=== PATIENT | female | born 1965 | race Caucasian/White ===

== ENCOUNTER 2016-11-28 14:29 | Emergency (ER) | payer OTHER ==
[~2016-11-28 14:29] MED LIST: IBUPROFEN400 MG PO; PERCOCET1 TA1 PO; VICODIN EQUIVAL1 TAB PO; VISTARIL25 MG PO
--- NOTE | 2016-11-28 14:57 | ED CLINICAL REPORT ---
Clinical Report - Physicians/Mid Levels [facility] [address] [place] [address] 11/28/2016 14:30 Patient: LUKE FORBES Arrived- By private vehicle. Historian- patient. HISTORY OF PRESENT ILLNESS Chief Complaint: DENTAL PAIN. This started last night and is still present. Pain described as severe. No sore throat or mouth sores. She has had toothache, swelling of the face, jaw pain and facial pain. (pt spoke w/ dentist today-advised to come to ER. Will see him Wednesday for extraction.). Similar symptoms previously: None. Recent medical care: Not recently seen/assessed. REVIEW OF SYSTEMS The patient has had fever, nausea and enlarged lymph nodes. No eye discomfort, difficulty breathing or vomiting. Denies current . PAST HISTORY See nurses notes. No history of heart disease, lung disease, hypertension or diabetes mellitus. Medications: 2 aleve at 0600. None. Allergies: None. SOCIAL HISTORY Light tobacco smoker (cigarette)- less than 1/2 a pack per day. Occasional alcohol use. History of drug use: marijuana. ADDITIONAL NOTES The nursing notes have been reviewed. PHYSICAL EXAM Vital Signs: 11/28/2016 14:35 BP: 130/78. HR: 104. RR: 22. O2 saturation: 100%. Temp: 98.8 F. Pain level now: 8/10. Have been reviewed and appear to be correct. Appearance: Alert. She appears in pain and is cooperative. She is alert, oriented, well hydrated, well nourished and well developed. She is well dressed, shows no apparent trauma and has normal color. Head: Mild swelling of the right maxilla. Normal external inspection. Eyes: Conjunctivae and eyelids normal. ENT: Dental decay. Severe dental tenderness with gingival tenderness and swelling (upper right molars). Ears normal. Nose normal. Pharynx normal. Lips normal. No trismus present. Uvula midline. Neck: Normal inspection. Mild right anterior neck and mild right posterior neck lymphadenopathy present. Trachea midline. Thyroid normal. Neck supple. No meningeal signs. CVS: Normal heart rate and rhythm. Heart sounds normal. Respiratory: No respiratory distress. Skin: Normal skin color. Normal skin turgor. Neuro: Oriented X 3. PROGRESS AND PROCEDURES Course of Care: No indication for labs ER physician Dr Terrell Pritchard available for backup PRN No evidence of sepsis or abscess requiring drainage IM rocephin 1g, dilaudid 2mg IM for pain. 15:17 11/28/16. Feeling better. Indications for return reviewed, as well as meds and rationale for home care. 15:25 11/28/16. 15:22 11/28/16. BP: 129/75. HR: 90. RR: 18. O2 saturation: 97%. Pain level now: 5/10. Patient is stable. Physical exam findings are improved. Symptoms much better. Patient and family counseled in person regarding the patient's condition, diagnosis and need for follow-up. Disposition: Discharged. Condition: stable. CLINICAL IMPRESSION Periapical dental abscess. No sinus tract. INSTRUCTIONS Drink plenty of fluids. (Return if symptoms worsen over next 24 hours. Take meds as directed. Only take percocet for bare minimum of time-may be addictive even used short term. do not mix w/ alcohol. Take stool softener w/ if prone to constipation.). Warnings: CONTROLLED SUBSTANCE WARNINGS: The reason for controlled substance is related to an acute illness. Reviewed the risks and benefits of the medication. Discussed warnings with the patient. GENERAL WARNINGS: Return or contact your physician immediately if your condition worsens or changes unexpectedly, if not improving as expected, or if other problems arise. Prescription Medications: Zofran (orally disintegrating tablets) 4 mg: take 1-2 orally every 8 hours as needed for nausea. Dispense five (5). No refill. Augmentin 875 mg: take 1 tablet orally every 12 hours for 10 days. No refill. Oxycodone/APAP 5 mg/325 mg: take 1-2 tablets orally every 6 hours as needed for pain. Dispense twelve (12). No refill. Dexamethasone 4 mg. No refill. (11/26/ taper (tabs per day, qty 6)) Follow-up: Follow up with a dentist Wednesday even if well. Summary of care provided to patient. Understanding of the discharge instructions verbalized by patient. (Electronically signed by Sherine Hoffmann A.R.NJasmineP. 11/28/2016 15:26)
--- NOTE | 2016-11-28 14:57 | ED ORDER SUMMARY ---
..... Patient: LUKE FORBES OrderSheet [facility] VisitID: [id number] [address] [place] [address] 50y, F Registration Date/Time: 11/28/2016 ORDER SHEET Weight: 56.6 kg (stated) Allergies: None GENERAL ORDERS: MEDICATION ORDERS: Rocephin IM 1 gm (NOW) (14:48 11/28/2016 SThom A.R.N.P.) (15:04 LSullivan R.N.) Dilaudid IM 2 mg (NOW) (14:48 11/28/2016 SThom A.R.N.P.) (15:04 LSullivan R.N.) Ondansetron ODT PO 4 mg (NOW) (14:49 11/28/2016 SThom A.R.N.P.) (15:03 LSullivan R.N.) IV FLUIDS: ORDER SHEET NOTES: [Electronically signed by Sherine Hoffmann A.R.N.P. (15:11/28/2016)] [Electronically signed by Chandrika Hernandez R.N. (15:11/28/2016)] [Electronically locked/signed by Chandrika Hernandez R.N. (15:11/28/2016)]
--- NOTE | 2016-11-28 14:57 | ED NURSING NOTES ---
Clinical Report - Nurses [facility] [address] [place] [address] 11/28/2016 14:30 Patient: LUKE FORBES TRIAGE Triage time 1435. Acuity: LEVEL 5. Chief Complaint: SORE THROAT, RIGHT UPPER TOOTHACHE and JAW PAIN and SWELLING OF JAW / FACE. --14:41 Nicole Boucher R.N. 14:35 11/28/16. BP: 130/78. HR: 104. RR: 22. O2 saturation: 100%. Temp: 98.8 F. Pain level now: 05/06. --14:41 Nicole Boucher R.N. Weight: 56.6 kg stated. Height/Length: 63 inches Per Patient. BMI: 22.1. --14:39 Nicole Boucher R.N. Medications None. --14:40 Nicole Boucher R.N. 2 aleve at 0600. --14:40 Nicole Boucher R.N. Allergies None. --14:40 Nicole Boucher R.N. History Arrived by private vehicle. Historian: patient. Accompanied by friend. Primary physician (DDS= ed in [facility]). No primary care physician. This started last night. SOCIAL HX: Light tobacco smoker (cigarette)- less than 1/2 a pack per day. Occasional alcohol use. History of drug use: marijuana. --14:41 Nicole Boucher R.N. PROBLEMS: Back Pain. Vaginal Bleeding. Ectopic . --14:38 Nicole Boucher R.N. ADDITIONAL SURGERIES: Laparoscopy. Shoulder Surgery. Tubal Ligation. --14:38 Nicole Boucher R.N. Interventions ID band on patient. To treatment room. --14:41 Nicole Boucher R.N. PHYSICAL ASSESSMENT 14:35. Ambulatory to room. GENERAL / NEURO / PSYCH: Alert. Oriented X 4. Appears in pain. HEENT: Facial swelling present. Voice within normal limits. ( pt states it hurts to swallow "due to the infection and swelling"). Dental tenderness. Dental decay. RESPIRATORY: Respirations not labored. CVS: Capillary refill less than 2 seconds. SKIN: Skin is warm and dry. --14:44 Nicole Boucher R.N. NURSING PROGRESS NOTES 14:35. Head of bed elevated. Reassurance given. Patient identifiers checked. Call light placed in reach. Side rails up. Bed placed in lowest position. Patient ready for evaluation- chart flagged. --14:45 Nicole Boucher R.N. 14:58 11/28/2016 Ondansetron ODT PO 4 mg given. Confirmed 5 rights. --15:03 Chandrika Hernandez R.N. 15:01 11/28/2016 Dilaudid (HYDROmorphone HCl PF) IM 2 mg given. Given in the left gluteus milad. Allergies verified, confirmed 5 rights and sedative warning given to the patient. --15:04 Chandrika Hernandez R.N. 15:04 11/28/2016 Rocephin (CefTRIAXone Sodium) IM 1 gm given. Given in the left gluteus milad. Allergies verified and confirmed 5 rights. --15:04 Chandrika Hernandez R.N. DISPOSITION / DISCHARGE Departure time: 1521. Condition at departure: improved. No learning barriers present. Reviewed medication(s) information. Prescription(s) given to the patient (explained tapering doses of dexamethasone, and that pt can start Augmentin tonight at bedtime). Reviewed referral to family practice for followup. Verbalized understanding. Written instructions provided. The patient was discharged home. She left the Emergency Department ambulatory and via private vehicle. Car Deliverer driving. --15:24 Chandrika Hernandez R.N. 15:22 11/28/16. BP: 129/75. HR: 90. RR: 18. O2 saturation: 97%. Pain level now: 02/03. --15:24 Chandrika Hernandez R.N. Locked/Released at 11/28/2016 15:26 by Chandrika Hernandez R.N.
--- NOTE | 2016-11-28 14:57 | ED NURSING NOTES ---
Clinical Report - Nurses [facility] [address] [place] [address] 11/28/2016 14:30 Patient: LUKE FORBES TRIAGE Triage time 1435. Acuity: LEVEL 5. Chief Complaint: SORE THROAT, RIGHT UPPER TOOTHACHE and JAW PAIN and SWELLING OF JAW / FACE. --14:41 Nicole Boucher R.N. 14:35 11/28/16. BP: 130/78. HR: 104. RR: 22. O2 saturation: 100%. Temp: 98.8 F. Pain level now: 05/06. --14:41 Nicole Boucher R.N. Weight: 56.6 kg stated. Height/Length: 63 inches Per Patient. BMI: 22.1. --14:39 Nicole Boucher R.N. Medications None. --14:40 Nicole Boucher R.N. 2 aleve at 0600. --14:40 Nicole Boucher R.N. Allergies None. --14:40 Nicole Boucher R.N. History Arrived by private vehicle. Historian: patient. Accompanied by friend. Primary physician (DDS= ed in [facility]). No primary care physician. This started last night. SOCIAL HX: Light tobacco smoker (cigarette)- less than 1/2 a pack per day. Occasional alcohol use. History of drug use: marijuana. --14:41 Nicole Boucher R.N. PROBLEMS: Back Pain. Vaginal Bleeding. Ectopic . --14:38 Nicole Boucher R.N. ADDITIONAL SURGERIES: Laparoscopy. Shoulder Surgery. Tubal Ligation. --14:38 Nicole Boucher R.N. Interventions ID band on patient. To treatment room. --14:41 Nicole Boucher R.N. PHYSICAL ASSESSMENT 14:35. Ambulatory to room. GENERAL / NEURO / PSYCH: Alert. Oriented X 4. Appears in pain. HEENT: Facial swelling present. Voice within normal limits. ( pt states it hurts to swallow "due to the infection and swelling"). Dental tenderness. Dental decay. RESPIRATORY: Respirations not labored. CVS: Capillary refill less than 2 seconds. SKIN: Skin is warm and dry. --14:44 Nicole Boucher R.N. NURSING PROGRESS NOTES 14:35. Head of bed elevated. Reassurance given. Patient identifiers checked. Call light placed in reach. Side rails up. Bed placed in lowest position. Patient ready for evaluation- chart flagged. --14:45 Nicole Boucher R.N. 14:58 11/28/2016 Ondansetron ODT PO 4 mg given. Confirmed 5 rights. --15:03 Chandrika Hernandez R.N. 15:01 11/28/2016 Dilaudid (HYDROmorphone HCl PF) IM 2 mg given. Given in the left gluteus milad. Allergies verified, confirmed 5 rights and sedative warning given to the patient. --15:04 Chandrika Hernandez R.N. 15:04 11/28/2016 Rocephin (CefTRIAXone Sodium) IM 1 gm given. Given in the left gluteus milad. Allergies verified and confirmed 5 rights. --15:04 Chandrika Hernandez R.N. DISPOSITION / DISCHARGE Departure time: 1521. Condition at departure: improved. No learning barriers present. Reviewed medication(s) information. Prescription(s) given to the patient (explained tapering doses of dexamethasone, and that pt can start Augmentin tonight at bedtime). Reviewed referral to family practice for followup. Verbalized understanding. Written instructions provided. The patient was discharged home. She left the Emergency Department ambulatory and via private vehicle. Community Assistant driving. --15:24 Chandrika Hernandez R.N. 15:22 11/28/16. BP: 129/75. HR: 90. RR: 18. O2 saturation: 97%. Pain level now: 02/03. --15:24 Chandrika Hernandez R.N. Locked/Released at 11/28/2016 15:26 by Chandrika Hernandez R.N.
--- NOTE | 2016-11-28 14:57 | ED ORDER SUMMARY ---
..... Patient: LUKE FORBES OrderSheet [facility] VisitID: [id number] [address] [place] [address] 50y, F Registration Date/Time: 11/28/2016 ORDER SHEET Weight: 56.6 kg (stated) Allergies: None GENERAL ORDERS: MEDICATION ORDERS: Rocephin IM 1 gm (NOW) (14:48 11/28/2016 SThom A.R.N.P.) (15:04 LSullivan R.N.) Dilaudid IM 2 mg (NOW) (14:48 11/28/2016 SThom A.R.N.P.) (15:04 LSullivan R.N.) Ondansetron ODT PO 4 mg (NOW) (14:49 11/28/2016 SThom A.R.N.P.) (15:03 LSullivan R.N.) IV FLUIDS: ORDER SHEET NOTES: [Electronically signed by Sherine Hoffmann A.R.N.P. (15:11/28/2016)] [Electronically signed by Chandrika Hernandez R.N. (15:11/28/2016)] [Electronically locked/signed by Chandrika Hernandez R.N. (15:11/28/2016)]
--- NOTE | 2016-11-28 15:26 | ED MED RECONCILIATION SUMMARY ---
Patient: LUKE FORBES Medication Reconciliation Report [facility] VisitID: [id number] [place] [address] 50y, F Registration Date/Time: 11/28/2016 Weight: 56.6 kg Height/Length: 63 in. BMI: 22.1 ALLERGIES: None The patient's Home Medications are listed below: THE FOLLOWING MEDICATIONS NEED TO BE RECONCILED: 2 aleve at 0600 The source(s) of the original Home Medication information: Not obtained. The following Medications were given to the patient in the Emergency Department: Ondansetron ODT [PO] PO 4 mg, administered: 11/28/2016 2:58:00 PM Dilaudid [IM] IM 2 mg, administered: 11/28/2016 3:01:00 PM Rocephin [IM] IM 1 gm, administered: 11/28/2016 3:04:00 PM The following Medications were prescribed to the patient: Zofran (orally disintegrating tablets) 4 mg: take 1-2 orally every 8 hours as needed for nausea. Dispense five (5). No refill. -- Sherine Hoffmann A.R.NJasmineP. Augmentin 875 mg: take 1 tablet orally every 12 hours for 10 days. No refill. -- Sherine Hoffmann A.R.NJasmineP. Oxycodone/APAP 5 mg/325 mg: take 1-2 tablets orally every 6 hours as needed for pain. Dispense twelve (12). No refill. -- Sherine Hoffmann A.R.NJasmineP. Dexamethasone 4 mg. No refill.( taper (tabs per day, qty 6)) -- Sherine Hoffmann A.R.NJasmineP.
--- NOTE | 2016-11-28 15:26 | ED DISCHARGE INSTRUCTIONS ---
Patient: LUKE FORBES General Instructions [facility] VisitID: [id number] [place] [address] 50y, F Registration Date/Time: 11/28/2016 Periapical dental abscess. No sinus tract. INSTRUCTIONS Drink plenty of fluids. (Return if symptoms worsen over next 24 hours. Take meds as directed. Only take percocet for bare minimum of time-may be addictive even used short term. do not mix w/ alcohol. Take stool softener w/ if prone to constipation.). Warnings: CONTROLLED SUBSTANCE WARNINGS: The reason for controlled substance is related to an acute illness. Reviewed the risks and benefits of the medication. Discussed warnings with the patient. GENERAL WARNINGS: Return or contact your physician immediately if your condition worsens or changes unexpectedly, if not improving as expected, or if other problems arise. Prescription Medications: Zofran (orally disintegrating tablets) 4 mg: take 1-2 orally every 8 hours as needed for nausea. Dispense five (5). No refill. Augmentin 875 mg: take 1 tablet orally every 12 hours for 10 days. No refill. Oxycodone/APAP 5 mg/325 mg: take 1-2 tablets orally every 6 hours as needed for pain. Dispense twelve (12). No refill. Dexamethasone 4 mg. No refill. ( taper (tabs per day, qty 6)) Follow-up: Follow up with a dentist Wednesday even if well. Summary of care provided to patient. Understanding of the discharge instructions verbalized by patient. ADDITIONAL INFORMATION Dental Abscess A dental abscess is an infection of the tooth socket. It often starts with a crack or cavity in the tooth. A pocket of pus forms between the tooth and the bone. The infection causes pain and swelling of the gum, cheek or jaw. The pain is often made worse by drinking hot or cold fluids, or biting on hard foods. Pain may be felt in the facial sinus or in the ear. A severe infection can interfere with swallowing and breathing. In the emergency department or clinic, you will be started on an antibiotic. However, final treatment requires drainage of the pus. This can be done by removing the tooth or performing a root canal. A root canal is done by an oral surgeon and involves drilling an opening in the tooth to drain the pus. After the infection has healed, a crown is placed over the tooth. Home care The following guidelines will help you care for your abscess at home: Avoid hot and cold foods and liquids since your tooth may be sensitive to temperature changes. If your tooth is chipped or cracked, or if there is a large open cavity, applyoil of cloves(available recm-ptl-tbyaazn in drug stores) directly to the tooth to reduce pain. Some pharmacies carry an jxuh-xnw-gnwvsot "toothache kit". This contains oil of cloves and a paste, which can be applied over the exposed tooth to decrease sensitivity. Apply an ice pack (ice cubes in a plastic bag, wrapped in a towel) over the injured area for 20 minutes every 12 hours the first day for pain relief. Continue this 34 times a day until the pain and swelling goes away. You may use acetaminophen or ibuprofen to control pain, unless another medicine was prescribed. If you have chronic liver or kidney disease or ever had a stomach ulcer or GI bleeding, talk with your doctor before using these medicines. An antibiotic will be prescribed. Take it as directed until completed, even if you are feeling better sooner. Follow-up care Follow up as directed with a dentist or oral surgeon. Even though your pain may improve with the treatment given today, only a dentist or oral surgeon can provide full treatment for this problem. When to seek medical care Get prompt medical attention or contact your doctor if any of the following occur: Your face or eyelid becomes swollen or red Pain worsens or spreads to the neck Fever over 100.4F (38.0C) Unusual drowsiness; headache or stiff neck; weakness, or fainting Pus drains from the gum or tooth Difficulty talking, swallowing or breathing Unable to open your mouth wide You have been given the following additional information: Tooth Abscess (Electronically signed by Sherine Hoffmann A.R.N.P. 11/28/2016 15:26)
--- NOTE | 2016-11-28 15:26 | ED MAR SUMMARY ---
..... Medication Administration Record [facility] [address] [place] [address] Patient: LUKE FORBES Visit ID: [id number] 50y, F Weight: 56.6 kg Height/Length: 63 in BMI: 22.1 ALLERGIES: None Given 14:58 11/28/2016 Chandrika Hernandez RGabino Medication Administered: ONDANSETRON ODT [PO], Dose: 4 mg PO. Medication Ordered: Ondansetron ODT PO 4 mg (NOW). Given 15:01 11/28/2016 Chandrika Hernandez RJasmineNJasmine Medication Administered: DILAUDID [IM] (HYDROMORPHONE HCL PF), Dose: 2 mg IM. Medication Ordered: Dilaudid IM 2 mg (NOW). Given 15:04 11/28/2016 Chandrika Hernandez, RJasmineNJasmine Medication Administered: ROCEPHIN [IM] (CEFTRIAXONE SODIUM), Dose: 1 gm IM. Medication Ordered: Rocephin IM 1 gm (NOW).
--- NOTE | 2016-11-28 15:26 | ED MED RECONCILIATION SUMMARY ---
Patient: LUKE FORBES Medication Reconciliation Report [facility] VisitID: [id number] [place] [address] 50y, F Registration Date/Time: 11/28/2016 Weight: 56.6 kg Height/Length: 63 in. BMI: 22.1 ALLERGIES: None The patient's Home Medications are listed below: THE FOLLOWING MEDICATIONS NEED TO BE RECONCILED: 2 aleve at 0600 The source(s) of the original Home Medication information: Not obtained. The following Medications were given to the patient in the Emergency Department: Ondansetron ODT [PO] PO 4 mg, administered: 11/28/2016 2:58:00 PM Dilaudid [IM] IM 2 mg, administered: 11/28/2016 3:01:00 PM Rocephin [IM] IM 1 gm, administered: 11/28/2016 3:04:00 PM The following Medications were prescribed to the patient: Zofran (orally disintegrating tablets) 4 mg: take 1-2 orally every 8 hours as needed for nausea. Dispense five (5). No refill. -- Sherine Hoffmann A.R.NJasmineP. Augmentin 875 mg: take 1 tablet orally every 12 hours for 10 days. No refill. -- Sherine Hoffmann A.R.NJasmineP. Oxycodone/APAP 5 mg/325 mg: take 1-2 tablets orally every 6 hours as needed for pain. Dispense twelve (12). No refill. -- Sherine Hoffmann A.R.NJasmineP. Dexamethasone 4 mg. No refill.( taper (tabs per day, qty 6)) -- Sherine Hoffmann A.R.NJasmineP.
--- NOTE | 2016-11-28 15:26 | ED MAR SUMMARY ---
..... Medication Administration Record [facility] [address] [place] [address] Patient: LUKE FORBES Visit ID: [id number] 50y, F Weight: 56.6 kg Height/Length: 63 in BMI: 22.1 ALLERGIES: None Given 14:58 11/28/2016 Chandrika Hernandez RGabino Medication Administered: ONDANSETRON ODT [PO], Dose: 4 mg PO. Medication Ordered: Ondansetron ODT PO 4 mg (NOW). Given 15:01 11/28/2016 Chandrika Hernandez RJasmineNJasmine Medication Administered: DILAUDID [IM] (HYDROMORPHONE HCL PF), Dose: 2 mg IM. Medication Ordered: Dilaudid IM 2 mg (NOW). Given 15:04 11/28/2016 Chandrika Hernandez, RJasmineNJasmine Medication Administered: ROCEPHIN [IM] (CEFTRIAXONE SODIUM), Dose: 1 gm IM. Medication Ordered: Rocephin IM 1 gm (NOW).
== END 2016-11-28 15:21 | disposition home or self-care (01) ==
LOC: ED SRH 14:29
DX: K04.7 Periapical abscess without sinus (principal); Z72.0 Tobacco use; Z79.1 Long term (current) use of non-steroidal anti-inflammatories (NSAID)